=== PATIENT | female | born 1950 | race Caucasian/White ===

== ENCOUNTER 2016-02-23 07:45 | Outpatient (CLI) | payer OTHER ==
[2016-02-23 08:31] LABS: Hemoglobin A1c 6.3 % (4.0-6.0)
== END 2016-02-23 07:46 ==
LOC: NAV SJFMSP 07:45
PROVIDERS: ATTEND Family Medicine
DX: E11.9 Type 2 diabetes mellitus without complications (principal)
CPT/HCPCS: 36415; 83036

== ENCOUNTER 2016-05-17 07:30 | Outpatient (CLI) | payer MEDICARE, OTHER ==
[2016-05-17 08:26] LABS: #Eosinphils 0.1 thou/uL (0.0-0.7); #Lymphocytes 2.3 thou/uL (1.20-3.40); #Monocytes 0.5 thou/uL (0.11-0.59); #Neutrophils 2.9 thou/uL (1.40-6.50); %Basophils 0.8 % (0.0-1.0); %Eosinophils 1.9 % (0.0-10.0); %Lymphocytes 39.3 % (21.0-51.0); %Neutrophils 50.1 % (42.0-75.0); Hemoglobin 13.6 g/dL (12.0-16.0); Mean Corpuscular HGB CONC 32.9 g/dL (32.0-36.0); Mean Corpuscular Hemoglobin 28.9 pg (27.0-31.0); Mean Platelet Volume 8.2 fL (7.4-10.4); Platelet Count 150 thou/uL (130-400); RBC Distribution Width 12.5 % (11.5-14.5); Red Blood Cell (RBC) Count 4.69 mill/uL (4.20-5.40); White Blood Cell (WBC) Count 5.9 thou/uL (4.8-10.8)
[2016-05-17 08:47] LABS: ALT (SGPT) 41 U/L (0-55); AST (SGOT) 31 U/L (5-34); Albumin 3.8 g/dL (3.4-4.8); Alkaline Phosphatase 114 U/L (40-150); Anion Gap 14 mmol/L (10-20); BUN (Urea Nitrogen) 9 mg/dL (9.8-20.1); Bilirubin, Total 0.5 mg/dL (0.2-1.2); Calc. Creatinine Clearance 0 mL/min (70-130); Carbon Dioxide 27 mmol/L (23-31); Cardiac Risk 3.6 (Less than 4.5); Chloride 105 mmol/L (98-107); Cholesterol 132 mg/dL (< 200 Desired); Estimated GFR-MDRD Greater than 90; Globulin 2.8 g/dL (2.4-3.5); Glucose 163 mg/dL (80-115); HDL Cholesterol 37 mg/dL (>60 Neg Risk); LDL Cholesterol, Calculated 65 mg/dL; Potassium 4.4 mmol/L (3.5-5.1); Protein, Total 6.6 g/dL (5.8-8.1); Sodium 142 mmol/L (136-145); Triglycerides 151 mg/dL (Less than 150)
[2016-05-17 09:14] LABS: Free T4 (Free Thyroxine) 1.14 ng/dL (0.70-1.48); Thyroid Stimulating Hormone 2.416 uIU/mL (0.35-4.94); Vitamin D, 25 Hydroxy 30.3 ng/mL (> 30.0)
[2016-05-17 09:27] LABS: Hemoglobin A1c 6.9 % (4.0-6.0)
[2016-05-17 17:53] LABS: Creatinine, Urine Less than 20.00 mg/dL (47-110); Microalbumin Urine Less than 1.0 mg/dL (0.5-50.0)
== END 2016-05-17 07:31 | disposition home or self-care (01) ==
LOC: NAV LAB 07:30
PROVIDERS: ATTEND Family Medicine
DX: E55.9 Vitamin D deficiency, unspecified (principal); E11.9 Type 2 diabetes mellitus without complications
CPT/HCPCS: 36415; 80053; 80061; 82043; 82306; 83036; 84439; 84443; 85025

== ENCOUNTER 2016-08-12 13:24 | Emergency (ER) | payer MEDICARE, OTHER ==
--- NOTE | 2016-08-12 15:48 | RAD ---
LEFT HAND THREE VIEWS 08/12/16 HISTORY: Fall. Left hand injury. FINDINGS: Minimally displaced oblique intra-articular fracture involves the medial base of the proximal phalan x of the middle finger. 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 IMPRESSION: Minimally displaced intra-articular fracture at the base of the left middle finger. Please consider immobilization and orthopedic followup. POS: KAVITA
== END 2016-08-12 14:05 | disposition home or self-care (01) ==
LOC: NAV ERS 13:24
DX: S62.613A Displaced fracture of proximal phalanx of left middle finger, initial encounter for closed fracture (principal); S63.92XA Sprain of unspecified part of left wrist and hand, initial encounter; E11.9 Type 2 diabetes mellitus without complications; E78.5 Hyperlipidemia, unspecified; F17.210 Nicotine dependence, cigarettes, uncomplicated; Z79.84 Long term (current) use of oral hypoglycemic drugs; Z79.82 Long term (current) use of aspirin; W07.XXXA Fall from chair, initial encounter

== ENCOUNTER 2016-08-20 09:00 | Outpatient (CLI) | payer MEDICARE, OTHER ==
[2016-08-20 09:50] LABS: Hemoglobin A1c 6.4 % (4.0-6.0)
[2016-08-20 09:59] LABS: ALT (SGPT) 33 U/L (8-55); AST (SGOT) 31 U/L (5-34); Albumin 4.1 g/dL (3.4-4.8); Alkaline Phosphatase 90 U/L (40-150); Anion Gap 16 mmol/L (10-20); BUN (Urea Nitrogen) 7 mg/dL (9.8-20.1); Calc. Creatinine Clearance 0 mL/min (70-130); Calcium 9.7 mg/dL (7.8-10.44); Carbon Dioxide 27 mmol/L (23-31); Chloride 102 mmol/L (98-107); Cholesterol 133 mg/dl (< 200 Desired); Estimated GFR-MDRD Greater than 90; Glucose 112 mg/dL (80-115); HDL Cholesterol 33 mg/dL (>60 Neg Risk); LDL Cholesterol, Calculated 67 mg/dL; Potassium 4.2 mmol/L (3.5-5.1); Protein, Total 7.1 g/dL (6.0-8.3); Sodium 141 mmol/L (136-145); Triglycerides 163 mg/dL (Less than 150)
== END 2016-08-20 09:01 | disposition home or self-care (01) ==
LOC: NAV LAB 09:00
PROVIDERS: ATTEND Family Medicine
DX: E11.9 Type 2 diabetes mellitus without complications (principal)
CPT/HCPCS: 80053; 80061; 83036

== ENCOUNTER 2016-11-19 11:50 | Outpatient (CLI) | payer MEDICARE, OTHER ==
--- NOTE | 2016-11-19 14:05 | ULT ---
BILATERAL CAROTID DUPLEX ULTRASOUND: DATE: 11/19/16 HISTORY: Left carotid artery stenosis. TECHNIQUE: Lakhani scale ultrasound with color flow and spectral Doppler imaging of the extracranial carotid arter y systems performed bilaterally. FINDINGS: There is plaque formation on both sides. The peak systolic velocity in the right ICA measures 94 cm/second with an end-diastolic velocity of 28 cm/second and a systolic ratio of 1.47. The peak systolic velocity in the left ICA measures 193 cm/second with an end-diastolic velocity of 62 cm/second and a systolic ratio of 2.91. Flow in both vertebral arteries remains antegrade. The left internal carotid artery velocities have increased since 09/07/11; however, the degree of st enosis (moderate, 50-69%) is stable. IMPRESSION: 1. Moderate (50-69%) stenosis involving the left ICA. 2. Mild (less than 50%) stenosis involving the right ICA. POS: OFF
== END 2016-11-19 11:51 | disposition home or self-care (01) ==
LOC: NAV ULT 11:50
PROVIDERS: ATTEND Family Medicine
DX: I65.23 Occlusion and stenosis of bilateral carotid arteries (principal)
CPT/HCPCS: 93880

== ENCOUNTER 2018-06-02 12:51 | Outpatient (CLI) | payer MEDICARE, OTHER ==
--- NOTE | 2018-06-04 14:01 | ULT ---
EXAM: Bilateral lower extremity arterial ultrasound HISTORY: Claudication COMPARISON: None TECHNIQUE: Multiplanar grayscale and color Doppler images were obtained and a bilateral lower extremi ty arterial ultrasound. Spectral analysis of the Doppler waveforms were performed. FINDINGS: No significant calcified plaque is seen in either lower extremity. Right lower extremity: Common femoral artery: Triphasic Profundofemoral artery: Biphasic Superficial femoral artery: Biphasic Popliteal artery: Biphasic Anterior tibial artery: Biphasic Posterior tibial artery: Biphasic Dorsalis pedis artery: Biphasic There is an increase in velocity from the proximal to midportion of the right superficial femoral art hazel suggesting an area of focal atherosclerotic disease in this segment. Left lower extremity: Common femoral artery: Biphasic Profundofemoral artery: Biphasic Superficial femoral artery: Biphasic Popliteal artery: Biphasic Anterior tibial artery: Biphasic Posterior tibial artery: Biphasic Dorsalis pedis artery: Biphasic No significant increase in velocity is seen from a more proximal to a distal segment to suggest an ar ea of focal atherosclerotic disease. IMPRESSION: Minimally abnormal waveforms. However, there is an area of elevated velocity in the right superficial femoral artery suggesting an area of focal stenosis in this vessel.
== END 2018-06-02 12:52 | disposition home or self-care (01) ==
LOC: NAV ULT 12:51
PROVIDERS: ATTEND Family Medicine
DX: I73.9 Peripheral vascular disease, unspecified (principal); R93.89 Abnormal findings on diagnostic imaging of other specified body structures
CPT/HCPCS: 93923

== ENCOUNTER 2020-02-04 19:54 | Emergency (ER) | payer MEDICARE, OTHER ==
[~2020-02-04 19:54] MED LIST: Iopamidol 370 76% 100 ML VIAL ONE
[2020-02-04 20:29] LABS: Bilirubin Negative (Negative); Blood, Urine Trace (Negative); Glucose, Urine (Dipstick) Negative (Negative); Ketone, Urine Negative (Negative); Leukocyte Large (Negative); Nitrite Positive (Negative); Protein, Urine (Dipstick) Negative (Neg-Trace); pH, Urine 5.5 (5.0-9.0)
[2020-02-04] MEDS ORDERED: Morphine 2 MG/ML SYRINGE ONE (20:29)
[2020-02-04 20:32] LABS: Clarity SL HAZY (Clear)
[2020-02-04 20:33] LABS: Bacteria/HPF 4+ HPF (None Seen); RBC/HPF 0-3 HPF (0-3); Squamous Epithelial 0-3 HPF (0-3)
[2020-02-04 21:04] LABS: #Eosinphils 0.1 thou/uL (0.0-0.7); #Lymphocytes 1.4 thou/uL (1.20-3.40); #Monocytes 0.4 thou/uL (0.11-0.59); #Neutrophils 3.2 thou/uL (1.40-6.50); %Basophils 0.7 % (0.0-1.0); %Lymphocytes 27.1 % (21.0-51.0); %Monocytes 6.9 % (0.0-10.0); %Neutrophils 64.3 % (42.0-75.0); Hemoglobin 14.1 g/dL (12.0-16.0); Mean Corpuscular HGB CONC 31.6 g/dL (32.0-36.0); Mean Corpuscular Hemoglobin 27.7 pg (27.0-31.0); Mean Corpuscular Volume 87.5 fL (78.0-98.0); Mean Platelet Volume 8.3 fL (7.4-10.4); RBC Distribution Width 13.5 % (11.5-14.5); Red Blood Cell (RBC) Count 5.09 mill/uL (4.20-5.40)
[2020-02-04 21:05] LABS: Platelet Count 86 thou/uL (130-400)
[2020-02-04 21:07] LABS: ALT (SGPT) 30 U/L (8-55); AST (SGOT) 36 U/L (5-34); Alkaline Phosphatase 123 U/L (40-110); Anion Gap 17 mmol/L (10-20); BUN (Urea Nitrogen) 11 mg/dL (9.8-20.1); Bilirubin, Total 0.8 mg/dL (0.2-1.2); Calc. Creatinine Clearance 0 mL/min (70-130); Calcium 9.7 mg/dL (7.8-10.44); Carbon Dioxide 23 mmol/L (23-31); Chloride 101 mmol/L (98-107); Globulin 3.7 g/dL (2.4-3.5); Glucose 255 mg/dL (80-115); Lipase 21 U/L (8-78); Potassium 4.3 mmol/L (3.5-5.1); Protein, Total 7.7 g/dL (6.0-8.3); Sodium 137 mmol/L (136-145)
[2020-02-04] MEDS ORDERED: Pantoprazole 40 MG VIAL ONE (21:26)
--- NOTE | 2020-02-04 21:43 | CT ---
CT abdomen and pelvis: 02/04/2020 COMPARISON: CT angiogram 11/27/2018 HISTORY: Epigastric pain TECHNIQUE: Axial CT imaging at 5 mm intervals from lung bases through pubic symphysis with IV contras t. Coronal and sagittal reformatted imaging obtained. FINDINGS: The lack of oral contrast limits assessment of the bowel. The visualized lung bases appear unremarkable. No free intraperitoneal air. The peripheral contour of the liver is irregular, evidence of cirrhosis. There is a linear hypodensit y within the medial aspect of the right lobe of the liver, similar when compared to a CT angiogram performed 11/28/2019 suggesting a cleft, collapsed cyst, or remote laceration. The spleen appears enl arged, measuring 15.5 cm in craniocaudal dimension. There is a recannulized paraumbilical vein and there are varices in the gastrohepatic ligament and perihepatic region, evidence of portal hypertensi on. The pancreas, kidneys, and right adrenal gland appear unremarkable. There is a left adrenal mass measuring 2 cm in AP dimension, unchanged when compared to the prior exam. Prior imaging suggest ed that this represents an adenoma. Review of the bowel demonstrates small bowel loops within the mid abdomen and the anterior aspect of the lower abdomen/upper pelvis which are distended and contain fluid. There is a transition to nondilated decompressed small bowel within the anterior midline lower abdomen on axial image 64 sugge sting a transition point associated with small bowel obstruction. The small bowel just proximal to this transition is dilated and contains fecal material. There is extensive atherosclerotic calcification of the abdominal aorta and its branches. Mildly enlarged lymph nodes are noted in the gastrohepatic ligament measuring up to 1.3 cm, stable as well. Review of the osseous structures demonstrates no worrisome lytic or blastic lesion. IMPRESSION: Evidence of small bowel obstruction with a transition point within the anterior lower abd omen on axial image [id number]. Cirrhosis with evidence of portal hypertension.
[2020-02-04] MEDS ORDERED: cefTRIAXone\\ROCEPHIN 1 GM VIAL ONE (21:58)
[2020-02-04] MEDS ORDERED: Sodium Chloride 0.9% 100 ML ONE (21:58)
== END 2020-02-04 22:20 | disposition short-term general hospital (02) ==
LOC: NAV ERS 19:54
DX: K56.609 Unspecified intestinal obstruction, unspecified as to partial versus complete obstruction (principal); I10 Essential (primary) hypertension; D69.6 Thrombocytopenia, unspecified; K76.6 Portal hypertension; N39.0 Urinary tract infection, site not specified; E11.9 Type 2 diabetes mellitus without complications; E78.5 Hyperlipidemia, unspecified; F17.210 Nicotine dependence, cigarettes, uncomplicated; Z79.82 Long term (current) use of aspirin; Z79.899 Other long term (current) drug therapy
CPT/HCPCS: 74177; 80053; 81003; 81015; 83690; 85025; 87077; 87086; 87186; 93005; 96374; 96375; C9113; J0696; J2270; J3490; Q9967

== ENCOUNTER 2021-10-23 11:33 | Emergency (ER) | payer OTHER | END 2021-10-23 12:17 | disposition home or self-care (01) | LOC: NAV ERS 11:33 | DX: L03.115 Cellulitis of right lower limb (principal); E11.51 Type 2 diabetes mellitus with diabetic peripheral angiopathy without gangrene; I10 Essential (primary) hypertension; E78.5 Hyperlipidemia, unspecified; F17.210 Nicotine dependence, cigarettes, uncomplicated | CPT/HCPCS: 99283 ==

== ENCOUNTER 2022-04-20 16:45 | Emergency (ER) | payer OTHER | END 2022-04-20 18:04 | disposition home or self-care (01) | LOC: NAV ERS 16:45 | DX: S80.212A Abrasion, left knee, initial encounter (principal); E11.649 Type 2 diabetes mellitus with hypoglycemia without coma; I10 Essential (primary) hypertension; E78.5 Hyperlipidemia, unspecified; F17.210 Nicotine dependence, cigarettes, uncomplicated; W01.0XXA Fall on same level from slipping, tripping and stumbling without subsequent striking against object, initial encounter; Z79.82 Long term (current) use of aspirin | CPT/HCPCS: 36416; 70450; 93005 ==

== ENCOUNTER 2023-01-13 21:30 | Emergency (ER) | payer OTHER ==
[2023-01-13] MEDS ORDERED: Boostrix 0.5 ML (Tdap) VIAL (>/=7 yrs of age) ONE (22:06)
== END 2023-01-13 23:59 | disposition home or self-care (01) ==
LOC: NAV ERS 21:30
DX: S00.01XA Abrasion of scalp, initial encounter (principal); S00.81XA Abrasion of other part of head, initial encounter; S60.511A Abrasion of right hand, initial encounter; I10 Essential (primary) hypertension; E11.9 Type 2 diabetes mellitus without complications; E78.5 Hyperlipidemia, unspecified; F17.210 Nicotine dependence, cigarettes, uncomplicated; Z79.82 Long term (current) use of aspirin; Z79.899 Other long term (current) drug therapy; Z86.73 Personal history of transient ischemic attack (TIA), and cerebral infarction without residual deficits; W05.0XXA Fall from non-moving wheelchair, initial encounter
CPT/HCPCS: 70450; 70486; 72125; 90471; 90715